=== PATIENT | male | born 1995 | race Asian ===

== ENCOUNTER 2018-05-27 13:53 | Emergency (ER) | payer BC ==
[~2018-05-27] VITALS: Ht 175.3 cm; Wt 68.0 kg
[2018-05-27 13:57] VITALS: Ht 175.3 cm; Wt 68.0 kg
[2018-05-27 16:05] VITALS: BP 122/80
== END 2018-05-27 16:05 | disposition home or self-care (01) ==
LOC: ED 13:53
DX: S92.351A Displaced fracture of fifth metatarsal bone, right foot, initial encounter for closed fracture (principal); J45.909 Unspecified asthma, uncomplicated; W22.8XXA Striking against or struck by other objects, initial encounter; Y93.89 Activity, other specified; Y92.89 Other specified places as the place of occurrence of the external cause; Y99.8 Other external cause status